=== PATIENT | male | born 1970 | race Caucasian/White ===

== ENCOUNTER 2016-08-18 18:40 | Emergency (ER) | payer OTHER ==
[~2016-08-18] VITALS: Ht 177.8 cm; Wt 75.0 kg
[~2016-08-18 18:40] MED LIST: AUGM875; OXYC-360; Z.0.NO CURRENT MEDS
[2016-08-18 18:42] VITALS: BP 148/71; PULSE 82; RESP 15; TEMP 98; O2SAT 98
[2016-08-18] MEDS ORDERED: CEPH-460 PO (19:12)
[2016-08-18] MEDS ORDERED: BACT800T5 PO (19:12)
[2016-08-18] MEDS ORDERED: LIDOCAINE HCL 1% PF 30 ML VIAL INFIL ONE (19:45)
--- NOTE | 2016-08-18 20:21 | PD ---
HPI Chief Complaint: Complaint Time Seen by Provider: 18:58 Travel History International Travel<30 days: No Contact w/Intl Traveler<30days: No Traveled to known affect area: No History of Present Illness HPI This is a 46 year old male who had a penis fracture on 07/29 [address] had surgery by Dr[address] Robledo at [facility] who presents to the emergency department today with a "hole" in the bottom of his penis which is draining yellow fluid, constant for about a week, worsening. He says he tried to call Dr. Robledo's office but they can make an appointment for him until 4 days from now. He did go to [facility] earlier this week and was started on Keflex and doxycycline which she's been taking for 4 days. He denies any fevers or chills. [facility] Social History Alcohol Use: Yes Tobacco Use: Yes Substance Use: Yes Allergies-Medications (Allergen,Severity, Reaction): Coded Allergies: No Known Allergies (Verified , 08/18/16) Reported Meds & Prescriptions Reported Meds & Active Scripts Active Reported Keflex (Cephalexin) 500 Mg Cap 500 Mg PO Q6H Bactrim DS (Sulfamethoxazole-Trimethoprim) 800-160 Mg Tab 1 Tab PO BID Review of Systems Except as stated in HPI: all other systems reviewed are Neg Physical Exam Narrative GENERAL:Well appearing, no acute distress SKIN: Focused skin assessment warm and dry. HEAD: Atraumatic. Normocephalic. EYES: Pupils equal and round. No injection or drainage. ENT: Moist mucous membranes NECK: Trachea midline. CARDIOVASCULAR: Regular rate and rhythm. No murmur appreciated. RESPIRATORY: Clear to auscultation. Breath sounds equal bilaterally. GASTROINTESTINAL: Abdomen soft, non-tender, nondistended. : dehiscence of surgical wound at the frenulum on the dorsal aspect of the penis with a 1 cm gaping area with granulation tissue at the base, no surrounding erythema or purulent discharge MUSCULOSKELETAL: No obvious deformities. NEUROLOGICAL: Awake and alert. No obvious cranial nerve deficits. Moving all extremities. PSYCHIATRIC: Appropriate mood and affect; insight and judgment normal. Data Data Last Documented VS Vital Signs Date Time Temp Pulse Resp B/P Pulse Ox O2 Delivery O2 Flow Rate FiO2 08/18/16 18:42 98.0 82 15 148/71 98 Orders Lidocaine Pf 1% Inj (Xylocaine-Mpf 1% In (08/18/16 19:45) MDM Medical Decision Making Medical Screen Exam Complete: Yes Emergency Medical Condition: Yes Differential Diagnosis wound dehiscence, wound infection, abscess Narrative Course This is a 46-year-old male who had a penile fracture in mid July and had surgical repair by Dr. Robledo at [facility] who presents today with wound dehiscence. I spoke to Dr. Robledo on the phone and described the wound. He recommended I place some superficial sutures to approximate the wound. I placed 3 sutures in the surgical wound and it approximated well. Patient tolerated the procedure well. He will follow up in urology clinic in 4 days. Procedures Procedure Narrative LACERATION LOCATION: Dorsal frenulum of penis LENGTH: 2 cm NUMBER OF STITCHES/CASSIA: 3 REPAIR: The area of the laceration was prepped with Betadine and sterilely draped. The laceration was infiltrated with 1% lidocaine. The wound was copiously irrigated and explored without evidence of foreign body, tendon injury or neurovascular injury. The wound was closed using 4-0 Vicryl. This was a single layer repair. A sterile dressing was applied. The patient was advised to keep the dressing clean and dry. Patient tolerated the procedure well. Diagnosis Primary Impression: Wound dehiscence Patient Instructions: General Instructions Additional Instructions: If you develop fevers, redness, swelling, or discharge from your wound return to the emergency room. Keep your wound dry for 24 hours. After that time, wash gently with warm soap and water. Do not use peroxide. Do not soak in baths or go swimming. Be sure to follow-up with Dr. Robledo at your scheduled appointment on Sunday. Med/Other Pt SpecificInfo: No Change to Meds Disposition: DISCHARGE HOME Condition: Stable Kajal Rocha MD August 18, 2016 20:21
[2016-08-18 20:44] VITALS: BP 138/74
== END 2016-08-18 20:46 | disposition home or self-care (01) ==
LOC: NEPE 18:40
DX: T81.33XA Disruption of traumatic injury wound repair, initial encounter (principal)
CPT/HCPCS: 12001